=== PATIENT | female | born 1970 | race Hispanic/Latino ===

== ENCOUNTER 2022-09-18 00:15 | Emergency (ER) | payer SELFPAY ==
[~2022-09-18] VITALS: Ht 152.4 cm; Wt 60.8 kg
[2022-09-18] MEDS ORDERED: IBUPROFEN 600 MG TAB PO STA (00:19)
[2022-09-18] MEDS ORDERED: HYDROCODONE/APAP 7.5MG-325MG 1 EA TAB PO ONE (00:30)
[2022-09-18] MEDS ORDERED: IBUPROFEN 600 MG TAB ONE (00:36)
[2022-09-18] MEDS ORDERED: HYDROCODONE/APAP 7.5MG-325MG 1 EA TAB ONE (00:37)
[2022-09-18] MEDS ORDERED: NAPROSYN500 MG PO (01:05)
[2022-09-18] MEDS ORDERED: HYDROCODON-ACE1 EA12 PO (01:05)
[2022-09-18] MEDS ORDERED: FENTANYL CITRATE/PF 100MCG/2 ML INJ IJ ONE (01:15)
[2022-09-18] MEDS ORDERED: FENTANYL CITRATE/PF 100MCG/2 ML INJ ONE (01:24)
== END 2022-09-18 01:40 | disposition home or self-care (01) ==
LOC: ER 00:28
DX: S82.092A Other fracture of left patella, initial encounter for closed fracture (principal); W01.0XXA Fall on same level from slipping, tripping and stumbling without subsequent striking against object, initial encounter; Y93.01 Activity, walking, marching and hiking; Y92.89 Other specified places as the place of occurrence of the external cause; I10 Essential (primary) hypertension; E11.9 Type 2 diabetes mellitus without complications
CPT/HCPCS: 29530; 73562; 99283; J3010